=== PATIENT | female | born 1945 | race Caucasian/White ===

== ENCOUNTER → 2019-03-05 10:01 | Outpatient (CLI) | payer MEDICARE, SELFPAY ==
--- NOTE | 2019-03-05 | DI.NM.S_ITS ---
PROCEDURE: NM BONE 3 PHASE RADIOPHARMACEUTICAL: 19.5 mCi Tc-99m MDP IV. INDICATIONS: Hip pain post replacement TECHNIQUE: Multiple bone scintigrams were obtained after intravenous injection of Tc-99m MDP, including flow, blood pool, and delayed images centered to the region of interest. COMPARISON: Outside Film, CR, XR PELVIS WITH LATERAL HIP LEFT, 06/04/2018, 17:23. FINDINGS: Photopenic defects related to bilateral hip arthroplasties. There is minimal adjacent tracer uptake to the left femoral stem component of the delayed images only. No positive immediate or blood pool abnormal tracer activity IMPRESSION: No scintigraphic evidence for hardware loosening or infection. Dictated by: Chapito Urias M.D. on 03/05/2019 at 14:57 Approved by: Chapito Urias M.D. on 03/05/2019 at 15:00
--- NOTE | 2019-03-05 | DI.CT.S_ITS ---
PROCEDURE: CT PEL WO CON INDICATIONS: LEFT hip pain post replacement TECHNIQUE: Noncontrast 3 mm axial sections acquired through the bony pelvis, with coronal and sagittal reformatting. COMPARISON: Outside Film, NM, NM BONE SCAN 3 PHASE, 06/04/2018, 12:26. FINDINGS: Image quality: Excellent. Bones: Patient is status post prior bilateral total hip arthroplasty. Bilateral hip alignment is anatomic. There is no gross hardware loosening or failure. No significant polyethylene wear is seen. There is no acute fracture or dislocation. No suspicious intraosseous lesion. No significant joint effusion is noted. Soft tissues: Examination of pelvic and hip soft tissues and muscles shows no gross abnormal density or hematoma. No significant muscle atrophy is seen. There is no pelvic free fluid of air. No abnormal bowel thickening. Urinary bladder wall thickness is within normal limits. No pelvic lymphadenopathy. IMPRESSION: Prior bilateral total hip arthroplasty with anatomic hip alignment. No CT evidence of hardware loosening or failure. No significant polyethylene wear. No significant joint effusion or adjacent muscle and soft tissue abnormality. Dictated by: Nash Fernandez M.D. on 03/05/2019 at 11:21 Approved by: Nash Fernandez M.D. on 03/05/2019 at 11:27
== END ==
PROVIDERS: PCP Physician Assistant Medical; Visit Provider Orthopaedic Surgery
DX: M25.552 Pain in left hip (principal); Z96.643 Presence of artificial hip joint, bilateral
CPT/HCPCS: 72192; 78315; A9503

== ENCOUNTER → 2021-09-22 09:53 | Outpatient (CLI) | payer MEDICARE, SELFPAY ==
--- NOTE | 2021-09-22 | DI.NM.S_ITS ---
PROCEDURE: [place] BONE SCAN WHOLE BODY RADIOPHARMACEUTICAL: 20.4 mCi Tc-99m MDP IV. INDICATIONS: HYPERCALCEMIA TECHNIQUE: Delayed whole-body scintigrams were obtained approximately 3-4 hours after intravenous injection of radiotracer. Anterior and posterior views were acquired from vertex to feet. COMPARISON: CT, CT PEL WO CON, 03/05/2019, 10:33. [place], [place], BONE SCAN WHOLE BODY, 02/28/2008, 11:22. Outside Film, [place], [place] BONE SCAN 3 PHASE, 06/04/2018, 12:26. FINDINGS: No lesions are identified in skull, sternum, clavicles, scapulae, ribs, bony pelvis, and visualized shafts of the long bones. There there are foci of increased uptake in cervical, thoracic and lumbar spine most likely secondary to degenerative disc and facet disease; early metastasis to spine could be obscured by degenerative changes. There are foci of increased periarticular activity involving shoulders, sternoclavicular joints, elbows, wrists, hands, SI joints, knees, ankles and feet, compatible with degenerative/arthritic changes. Bilateral hip arthroplasties. Low-level increased activity around the hip prostheses bilaterally is most likely secondary to postsurgical change. IMPRESSION: 1. A cause for hypercalcemia is not identified on bone scan. 2. Degenerative and postsurgical changes as described. Dictated by: Nahum Street M.D. on 09/22/2021 at 15:10 Approved by: Nahum Street M.D. on 09/22/2021 at 15:13
== END ==
PROVIDERS: PCP Physician Assistant Medical; Referring Provider Student in an Organized Health Care Education/Training Program; Visit Provider Student in an Organized Health Care Education/Training Program
DX: E83.52 Hypercalcemia (principal); M89.9 Disorder of bone, unspecified
CPT/HCPCS: 78306; A9503

== ENCOUNTER 2021-10-23 13:54 | Emergency (ER) | payer MEDICARE, SELFPAY ==
[2021-10-23] VITALS (9 sets, daily range): BP systolic 172–213; BP diastolic 74–93; PULSE 70–102; RESP 20; TEMP 36.8; O2SAT 95–100; BMI 29.2
[2021-10-23 16:04] LABS: Bacteria Urine Occasional (0-1); RBC Urine 1-5/HPF (0-5/HPF); Squamous Epithelial Cell Urine 1-5 /HPF (0-5/HPF); WBC Urine 1-5/HPF (0-5/HPF)
--- NOTE | 2021-10-23 16:04 | ED.FALL ---
HPI - Fall General Chief Complaint: Fall Stated Complaint: glf hit head bleeding hips hurt Time Seen by Provider: 10/23/21 15:55 Source: patient and family Mode of arrival: Wheelchair History of Present Illness HPI Narrative: Patient is a 76-year-old female. Not on anticoagulation. Was at her normal state health when she was sitting in the chair in front of her computer where she states that she tried to get up and slipped down and hit the back of her head on the ground. There was no loss of consciousness. She has had bilateral hip replacements in the past and it has caused her discomfort since then and because of the hip discomfort she could not get her legs up under her in order to get up off the floor. She was able to eventually get a hold of a friend who came over to help her up. She reports no neck pain. No shoulder pain. She has her baseline hip pain. No other lower extremity symptoms. She has been bleeding from the back of her head. Related Data Home Medications Medication Instructions Recorded Confirmed KRILL OIL (#[facility] KRILL OIL) 2 tabs PO QDAY ##0 11/23/11 [id number] (SALMON OIL) 2 tabs PO 2-3 PER DAY ##0 11/23/11 [CALCIUM W/ VITAMIN D] 1 tbls PO BID ##0 11/23/11 [VITAMIN B6 B12 FOLIC] QDAY ##0 11/23/11 [VITAMIN C] 2 tbls PO QPM ##0 11/23/11 acetaminophen 500 mg tablet 500 mg PO PRN ##0 11/23/11 (Tylenol Extra Strength) azithromycin 250 mg tablet 2 tabs PO PREDENTAL ##0 11/23/11 (Zithromax) Allergies Allergy/AdvReac Type Severity Reaction Status Date / Time ASPIRIN Allergy Mild GI UPSET Uncoded 05/16/17 12:10 CODEINE Allergy Mild VOMITING Uncoded 05/16/17 12:10 From ADVIL Allergy Mild GI UPSET Uncoded 05/16/17 12:10 From ALEVE Allergy Mild GI UPSET Uncoded 05/16/17 12:10 LATEX Allergy Mild RASH,SKIN Uncoded 05/16/17 12:10 IRRITATION PENICILLIN Allergy Mild KIDNEY Uncoded 05/16/17 12:10 FAILURE (AMPICILLIN OK) WHEAT Allergy Mild UNKNOWN Uncoded 05/16/17 12:10 YEAST EXTRACTS Allergy Mild UNKNOWN Uncoded 05/16/17 12:10 Review of Systems Constitutional Constitutional: Reports system reviewed and no additional complaints, except as documented Cardiovascular Cardiovascular: Reports system reviewed and no additional complaints, except as documented Respiratory Respiratory: Reports system reviewed and no additional complaints, except as documented Gastrointestinal Gastrointestinal: Reports system reviewed and no additional complaints, except as documented Integumentary/Breasts Skin/Breast: Reports system reviewed and no additional complaints, except as documented Neurologic Neurologic: Reports system reviewed and no additional complaints, except as documented Hematologic/Lymphatic On Anticoagulants: No Patient History Social History lives independently: Yes Exam Initial Vital Signs Initial Vital Signs: Vital Signs Temperature 98.2 F 10/23/21 14:14 Pulse Rate 74 10/23/21 14:14 Respiratory Rate 20 10/23/21 14:14 Blood Pressure 190/88 H 10/23/21 14:14 Pulse Oximetry 97 10/23/21 14:14 Oxygen Delivery Method 10/23/21 14:14 Const General: cooperative and comfortable HENMT Head: abrasion (Posterior scalp) Resp Effort & Inspection: normal respiratory effort Cardio Rate: regular rate Rhythm: regular rhythm Skin Other: Skin abrasion posterior scalp Neuro General: patient alert, patient awake and moves all extremities Extrem General: normal to inspection and capillary refill normal Psych Appearance: grossly normal and well kempt Scores GCS Sanjay coma scale eye opening: Spontaneous [place] coma scale verbal response: Orientated [place] coma scale motor response: Obey commands [place] coma scale total score: 15 Nexus Score for C-Spine Focal Neurologic deficit present: No Midline spinal tenderness present: No Altered level of conciousness present: No Intoxication present: No Distracting Injury Present: No Nexus Criteria for C-spine: 0 Course Orders Ordered: ED Orders 10/23/21 15:45 Urine Culture Stat Urine Microscopic Stat Vital Signs Vital signs: Vital Signs - 8 hr 10/23/21 14:14 10/23/21 14:28 10/23/21 14:30 Temperature 98.2 F Pulse Rate 74 70 71 Respiratory Rate 20 Blood Pressure 190/88 H Pulse Oximetry 97 96 97 Oxygen Delivery Method Room Air 10/23/21 15:00 10/23/21 15:17 10/23/21 15:17 Temperature Pulse Rate 72 102 H Respiratory Rate Blood Pressure 213/93 H Pulse Oximetry 100 96 Oxygen Delivery Method MDM - Fall Lab Data Labs: Lab Results 10/23/21 Range/Units 15:45 Urine RBC 1-5/hpf (0-5/HPF) Urine WBC 1-5/hpf (0-5/HPF) Ur Squamous Epith Cells 1-5 /hpf (0-5/HPF) Urine Bacteria Occasional (0-1) (None) Ur Culture Indicated? Culture not indicate Urine Dip Bedside Urine Glucose Negative Bedside Urine Bilirubin - Negative Bedside Urine Ketone - Negative Urine Specific [place] 1.010 Bedside Urine Occult Blood +/- Bedside Urine pH 6.0 Bedside Urine Protein - Negative Bedside Urine Urobilinogen 0.2 Bedside Urine Nitrite - Negative Bedside Urine Leukocytes - Negative Esterase MDM Narrative Medical decision making narrative: Patient not on thinners. Alert oriented x3. Abrasion on the posterior aspect of the scalp needs no intervention. Was cleaned here in the ER. No indication for radiologic studies. Neck cleared by nexus criteria. She reports no other extremity injuries caused by this fall. Will discharge patient home. She was given return precautions. She expressed understanding and agreement. Discharge Plan Departure Patient Disposition: Home Clinical Impression: Abrasion of scalp Instructions: DI for Abrasion Activity Restrictions/Additional Instructions: You have no restrictions on your activities. You can eat and sleep like normal. You can shower like normal. You can place some [id number] antibiotic ointment over the abrasion if you wish. Return to the emergency department for any new or worsening symptoms. Prescriptions: No Action KRILL OIL (#[facility] KRILL OIL) 2 tabs PO QDAY Qty: 0 [CALCIUM W/ VITAMIN D] 1 tbls PO BID Qty: 0 acetaminophen [Tylenol Extra Strength] 500 MG tablet 500 mg PO PRN Qty: 0 [id number] (SALMON OIL) 2 tabs PO 2-3 PER DAY Qty: 0 [VITAMIN B6 B12 FOLIC] QDAY Qty: 0 [VITAMIN C] 2 tbls PO QPM Qty: 0 azithromycin [Zithromax] 250 MG tablet 2 tabs PO PREDENTAL Qty: 0 Referrals: Josefina Grimes PA-C [Primary Care Provider] -
== END 2021-10-23 16:24 | disposition home or self-care (01) ==
PROVIDERS: Emergency Provider Emergency Medicine; PCP Physician Assistant Medical
DX: S00.01XA Abrasion of scalp, initial encounter (principal); W19.XXXA Unspecified fall, initial encounter
CPT/HCPCS: 81003; 81015; 87086; 99282; 99283